=== PATIENT | female | born 1985 | race Caucasian/White ===

== ENCOUNTER → 2017-05-18 | Outpatient (CLI) | payer OTHER ==
[~2017-05-18] MED LIST: AMOXICILLIN 8751 TAB PO; BACTRIM DS 8001 TAB PO; NEURONTIN100 MG/CAP PO; NORCO 325 MG-7.1 TAB PO
== END ==
LOC: ZCOL.LAB 16:51
DX: T81.31XA Disruption of external operation (surgical) wound, not elsewhere classified, initial encounter (principal)

== ENCOUNTER → 2017-05-18 | Outpatient (CLI) | payer OTHER | LOC: WCC 10:01 | DX: T81.31XA Disruption of external operation (surgical) wound, not elsewhere classified, initial encounter (principal) | CPT/HCPCS: 13973; 17717; 27514; A6199; A6212; G0463 ==

== ENCOUNTER → 2017-05-21 | Outpatient (CLI) | payer OTHER | LOC: WCC 05-20 10:10 | DX: T81.31XA Disruption of external operation (surgical) wound, not elsewhere classified, initial encounter (principal); T81.4XXA Infection following a procedure, initial encounter; B99.8 Other infectious disease | CPT/HCPCS: 13973; 17717; 27514; 27516; A6199; A6207; A6212; G0463 ==

== ENCOUNTER → 2017-05-24 | Outpatient (CLI) | payer OTHER | LOC: WCC 08:35 | DX: T81.31XA Disruption of external operation (surgical) wound, not elsewhere classified, initial encounter (principal); B96.20 Unspecified Escherichia coli [E. coli] as the cause of diseases classified elsewhere; B95.62 Methicillin resistant Staphylococcus aureus infection as the cause of diseases classified elsewhere; B37.2 Candidiasis of skin and nail | CPT/HCPCS: 13973; 17717; 27514; A6199; A6212; G0463 ==

== ENCOUNTER 2017-09-16 07:30 | Day surgery (SDC) | payer OTHER ==
[~2017-09-16] VITALS: Ht 160 cm; Wt 74.5 kg
[2017-09-16 07:58] VITALS: BP 113/60; PULSE 87; TEMP 97.9
[2017-09-16] MEDS ORDERED: SEPTRA DS 8001 TAB PO (08:25)
[2017-09-16] MEDS ORDERED: CLARITIN 1010 MG/TAB PO (08:25)
[2017-09-16] MEDS ORDERED: SINGULAIR 110 MG/TAB PO (08:26)
[2017-09-16 10:20] VITALS: BP 102/53; PULSE 75
[2017-09-16 10:35] VITALS: BP 95/44; PULSE 72; TEMP 97.5
[2017-09-16] MEDS ORDERED: NORCO 325 MG-51 TAB PO (10:35)
[2017-09-16 11:43] VITALS: BP 100/57; PULSE 70; TEMP 98.4
== END 2017-09-16 11:20 | disposition home or self-care (01) ==
LOC: SDCO 07:30
DX: T81.89XA Other complications of procedures, not elsewhere classified, initial encounter (principal)
CPT/HCPCS: J0690; J1100; J1885; J2250; J2270; J2405; J2550; J2704; J3010; J7120

== ENCOUNTER → 2017-09-24 | Outpatient (CLI) | payer OTHER ==
[~2017-09-24] MED LIST changes: +CLARITIN 1010 MG/TAB PO; +NORCO 325 MG-51 TAB PO; +SEPTRA DS 8001 TAB PO; +SINGULAIR 110 MG/TAB PO
== END ==
LOC: ZCOL.LAB 14:07
DX: T81.31XA Disruption of external operation (surgical) wound, not elsewhere classified, initial encounter (principal)